=== PATIENT | female | born 1970 | race African-American/Black ===

== ENCOUNTER 2022-12-28 11:44 | Emergency (ER) | payer MEDICAID ==
[~2022-12-28] VITALS: Ht 172.7 cm; Wt 97.0 kg
[2022-12-28 12:41] LABS: BASOPHILS % 0.5 % (0.0-2.0); EOSINOPHILS % 2.6 % (0.0-5.0); HEMATOCRIT. 37.2 % (36.0-48.0); HEMOGLOBIN. 12.7 g/dL (12.0-16.0); LYMPHOCYTES % 17.9 % (20.0-50.0); MEAN CORPUSCULAR HEMOGLOBIN 26.9 pg (28.0-32.0); MEAN CORPUSCULAR VOLUME 79.1 fL (81.0-99.0); MEAN PLATELET VOLUME 8.7 fl (7.4-10.4); MONOCYTES % 4.5 % (2.0-8.0); NEUTROPHILS % 74.5 % (40.0-76.0); PLATELET 316 x1000/uL (130-400); RED CELL DISTRIBUTION WIDTH 14.5 % (11.6-14.6)
[2022-12-28 12:48] LABS: CHLORIDE 107 mEq/L (98-107)
[2022-12-28 12:57] VITALS: O2SAT 98
[2022-12-28] MEDS ORDERED: POTASSIUM CHLORIDE 20MEQ/PACKET PO ONE ×2 (16:00→16:15)
[2022-12-28] MEDS ORDERED: MAGNESIUM OXIDE 400MG TABLET PO SCH (16:00)
[2022-12-28 17:56] VITALS: BP 153/82; PULSE 75; RESP 18; TEMP 98.7
== END 2022-12-28 18:00 | disposition home or self-care (01) ==
LOC: ER 12:43
DX: I10 Essential (primary) hypertension (principal)
CPT/HCPCS: 36415; 71045; 80053; 84484; 85025; 93005; 99285